=== PATIENT | female | born 1990 | race Two or more races ===

== ENCOUNTER 2018-03-01 21:00 | Emergency (ER) | payer SELFPAY ==
--- NOTE | 2018-03-01 21:58 | EDPHY ---
H & P Stated Complaint: n/v, abd pain, mid to R side x6 hrs Time Seen by Provider: 03/01/18 21:58 HPI/ROS: HPI CHIEF COMPLAINT: Abdominal pain HISTORY OF PRESENT ILLNESS: 28-year-old female presents emergency room with right-sided abdominal pain. States this started around 230 this afternoon is been persistent. It is located periumbilical right lower quadrant. Dull ache. Associated nausea vomiting but no diarrhea. Denies any fever. Denies urinary symptoms. Patient denies any chest pain or shortness of breath. Denies back pain. Patient denies any vaginal discharge. Denies being . Past Medical History: Denies significant medical history Past Surgical History: Exploratory laparotomy for bleeding. States she "had a hole in her intestines" Social History: Denies daily use of drugs alcohol tobacco. Family History: Noncontributory ROS REVIEW OF SYSTEMS: 10 Systems were reviewed and negative with the exception of the elements mentioned in the history of present illness. Exam Constitutional nontoxic appearing, triage nursing summary reviewed, vital signs reviewed, awake/alert. Eyes normal conjunctivae and sclera, EOMI, PERRLA. HENT normal inspection, atraumatic, moist mucus membranes, no epistaxis, neck supple/ no meningismus, no raccoon eyes. Respiratory clear to auscultation bilaterally, normal breath sounds, no respiratory distress, no wheezing. Cardiovascular rate normal, regular rhythm, no murmur, no edema, distal pulses normal. Gastrointestinal midline abdominal incision, mildly tender right lower quadrant ,no rebound, no guarding, normal bowel sounds, no distension, no pulsatile mass. Genitourinary no CVA tenderness. Musculoskeletal no midline vertebral tenderness, full range of motion, no calf swelling, no tenderness of extremities, no meningismus, good pulses, neurovascularly intact. Skin pink, warm, & dry, no rash, skin atraumatic. Neurologic awake, alert and oriented x 3, AAOx3, moves all 4 extremities equally, motor intact, sensory intact, CN II-XII intact, normal cerebellar, normal vision, normal speech. Psychiatric normal mood/affect. Heme/Lymph/Immune no lymphadenopathy. Differential diagnosis includes but is not limited to and in no particular order : Bowel obstruction, appendicitis, gallbladder disease, diverticulitis, colitis , enteritis, perforated viscus, gastritis, GERD, esophagitis, urinary tract infection, pyelonephritis, kidney stones Medical Decision Making: Plan for this patient IV establishment IV fluid bolus , IV Dilaudid for pain control IV Phenergan for nausea, basic blood work, test, UA, CT scan abdomen pelvis with IV contrast. Re-evaluate. Re-evaluation: 1230AM: Patient notified nursing staff that she wanted to leave and refused all blood work and testing. Refused CT scan. She states she had an obligation that she did take care of and wanted to leave immediately from the emergency room. I was unable to talk to her as she request for IV to be removed and walked out without much notice. She was here for abdominal pain. I did recommend blood work and CT scan imaging due to the lower abdominal pain however patient left against medical advice. Source: Patient - Personal History LMP (Females 10-55): Irregular Current Tetanus Diphtheria and Acellular Pertussis (TDAP): Yes - Medical/Surgical History Hx Asthma: No Hx Chronic Respiratory Disease: No Hx Diabetes: No Hx Cardiac Disease: No Hx Renal Disease: No Hx Cirrhosis: No Hx Alcoholism: No Hx HIV/AIDS: No Hx Splenectomy or Spleen Trauma: No Other PMH: "kidney problems when i was younger" - Social History Smoking Status: Never smoked Constitutional: Initial Vital Signs Heart Rate 81 03/01/18 21:06 Respiratory Rate 18 03/01/18 21:06 Blood Pressure 103/77 03/01/18 21:06 O2 Sat (%) 95 03/01/18 21:06 O2 Delivery Mode Room Air Allergies/Adverse Reactions: morphine Allergy (Verified 03/01/18 21:08) ondansetron [From Zofran] Allergy (Verified 03/01/18 21:08) Medical Decision Making - Data Points Laboratory Results: Laboratory Results 03/01/18 22:03 03/01/18 22:03 03/01/18 03/01/18 03/01/18 22:35 22:08 22:03 WBC RBC Hgb POC Hgb 11.2 gm/dL L gm/dL (12.6-16.3) Hct POC Hct 33 % L % (38-47) MCV MCH MCHC RDW Plt Count MPV Neut % (Auto) Lymph % (Auto) [place] % (Auto) Eos % (Auto) Baso % (Auto) Nucleat RBC Rel Count Absolute Neuts (auto) Absolute Lymphs (auto) Absolute Monos (auto) Absolute Eos (auto) Absolute Basos (auto) Absolute Nucleated RBC Immature Gran % Immature Gran # PT 13.5 SEC SEC (12.0-15.0) INR 1.01 (0.83-1.16) APTT 27.1 SEC SEC (23.0-38.0) VBG Lactic Acid POC Sodium 140 mEq/L mEq/L (135-145) Sodium POC Potassium 4.1 mEq/L mEq/L (3.3-5.0) Potassium POC Chloride 110 mEq/L mEq/L (97-110) Chloride Carbon Dioxide Anion Gap POC BUN 14 mg/dL mg/dL (7-23) BUN Creatinine POC Creatinine 0.6 mg/dL mg/dL (0.6-1.0) Estimated GFR Glucose POC Glucose 87 mg/dL mg/dL (70-100) Calcium Total Bilirubin Conjugated Bilirubin Unconjugated Bilirubin AST ALT Alkaline Phosphatase Total Protein Albumin Lipase Beta HCG, Qual NEGATIVE 03/01/18 03/01/18 03/01/18 22:03 22:03 22:03 WBC 4.15 10^3/uL 10^3/uL (3.80-9.50) RBC 3.70 10^6/uL L 10^6/uL (4.18-5.33) Hgb 10.5 g/dL L g/dL (12.6-16.3) POC Hgb Hct 32.9 % L % (38.0-47.0) POC Hct MCV 88.9 fL fL (81.5-99.8) MCH 28.4 pg pg (27.9-34.1) MCHC 31.9 g/dL L g/dL (32.4-36.7) RDW 13.7 % % (11.5-15.2) Plt Count 301 10^3/uL 10^3/uL (150-400) MPV 9.9 fL fL (8.7-11.7) Neut % (Auto) 39.1 % L % (39.3-74.2) Lymph % (Auto) 49.2 % H % (15.0-45.0) [place] % (Auto) 8.4 % % (4.5-13.0) Eos % (Auto) 2.4 % % (0.6-7.6) Baso % (Auto) 0.7 % % (0.3-1.7) Nucleat RBC Rel Count 0.0 % % (0.0-0.2) Absolute Neuts (auto) 1.62 10^3/uL L 10^3/uL (1.70-6.50) Absolute Lymphs (auto) 2.04 10^3/uL 10^3/uL (1.00-3.00) Absolute Monos (auto) 0.35 10^3/uL 10^3/uL (0.30-0.80) Absolute Eos (auto) 0.10 10^3/uL 10^3/uL (0.03-0.40) Absolute Basos (auto) 0.03 10^3/uL 10^3/uL (0.02-0.10) Absolute Nucleated RBC 0.00 10^3/uL 10^3/uL (0-0.01) Immature Gran % 0.2 % % (0.0-1.1) Immature Gran # 0.01 10^3/uL 10^3/uL (0.00-0.10) PT INR APTT VBG Lactic Acid 1.3 mmol/L mmol/L (0.7-2.1) POC Sodium Sodium 138 mEq/L mEq/L (135-145) POC Potassium Potassium 4.4 mEq/L mEq/L (3.3-5.0) POC Chloride Chloride 111 mEq/L H mEq/L (97-110) Carbon Dioxide 20 mEq/l L mEq/l (22-31) Anion Gap 7 mEq/L L mEq/L (8-16) POC BUN BUN 15 mg/dL mg/dL (7-23) Creatinine 0.6 mg/dL mg/dL (0.6-1.0) POC Creatinine Estimated GFR > 60 Glucose 88 mg/dL mg/dL (70-100) POC Glucose Calcium 8.7 mg/dL mg/dL (8.5-10.4) Total Bilirubin 0.3 mg/dL mg/dL (0.1-1.4) Conjugated Bilirubin 0.2 mg/dL mg/dL (0.0-0.5) Unconjugated Bilirubin 0.1 mg/dL mg/dL (0.0-1.1) AST 28 IU/L IU/L (14-46) ALT 29 IU/L IU/L (9-52) Alkaline Phosphatase 64 IU/L IU/L (38-126) Total Protein 5.7 g/dL L g/dL (6.3-8.2) Albumin 3.5 g/dL g/dL (3.5-5.0) Lipase 36 IU/L IU/L (23-300) Beta HCG, Qual Medications Given: Discontinued Medications Diphenhydramine HCl (Benadryl Injection) 25 mg IVP EDNOW ONE Stop: 03/01/18 22:26 Last Admin: 03/01/18 22:26 Dose: 25 mg Hydromorphone HCl (Dilaudid) 0.5 mg IVP EDNOW ONE Stop: 03/01/18 22:03 Last Admin: 03/01/18 22:14 Dose: 0.5 mg Sodium Chloride (Ns) 1,000 mls @ 0 mls/hr IV EDNOW ONE; Wide Open PRN Reason: Protocol Stop: 03/01/18 22:03 Last Admin: 03/01/18 22:10 Dose: 1,000 mls Sodium Chloride (Ns) 1,000 mls @ 0 mls/hr IV EDNOW ONE; Wide Open PRN Reason: Protocol Stop: 03/01/18 22:03 Last Admin: 03/01/18 22:10 Dose: 1,000 mls Promethazine HCl (Phenergan) 6.25 mg IVP ONCE ONE Stop: 03/01/18 22:04 Last Admin: 03/01/18 22:12 Dose: 6.25 mg Point of Care Test Results: Chemistry 03/01/18 22:08 POC Sodium 140 mEq/L mEq/L (135-145) POC Potassium 4.1 mEq/L mEq/L (3.3-5.0) POC Chloride 110 mEq/L mEq/L (97-110) POC BUN 14 mg/dL mg/dL (7-23) POC Creatinine 0.6 mg/dL mg/dL (0.6-1.0) POC Glucose 87 mg/dL mg/dL (70-100) ISTAT H&H 03/01/18 22:08 POC Hgb 11.2 gm/dL L gm/dL (12.6-16.3) POC Hct 33 % L % (38-47) Departure - Departure Disposition: Against Medical Advice Clinical Impression: Abdominal pain Qualifiers: Abdominal location: generalized Qualified Code(s): R10.84 - Generalized abdominal pain Condition: Fair Referrals: NONE *PRIMARY CARE P,. [Primary Care Provider] - As per Instructions
[2018-03-01] MEDS ORDERED: NS 1,000 ML IV ONE ×2 (22:02)
[2018-03-01] MEDS ORDERED: HYDROmorphONE/DILAUDID 2 MG/ML INJ IVP ONE (22:02)
[2018-03-01] MEDS ORDERED: PROMETHAZINE HCL 25 MG/ML INJ IVP ONE (22:03)
[2018-03-01] MEDS ORDERED: IOPAMIDOL (ISOVUE-300) 100 ML BTL ONE (22:05)
[2018-03-01 22:15] VITALS: BP 116/88
[2018-03-01 22:19] LABS: PLATELET COUNT 301 10^3/uL (150-400)
[2018-03-01 22:49] LABS: INR 1.01 (0.83-1.16); PROTIME(PATIENT) 13.5 SEC (12.0-15.0)
== END 2018-03-01 22:54 | disposition left against medical advice (07) ==
DX: R10.84 Generalized abdominal pain (principal)
CPT/HCPCS: 82435-PO; 82565-PO; 82947-PO; 84132-PO; 84295-PO; 84520-PO; 85014-PO; 96374; J1170; J1200; J2550; Q9967